=== PATIENT | female | born 1970 | race Caucasian/White ===

== ENCOUNTER 2017-05-18 08:41 | Inpatient (IN) | payer OTHER ==
[~2017-05-18] VITALS: Ht 165.1 cm; Wt 58.5 kg
[2017-05-18 09:37] LABS: BASOPHIL % 0.8 % (0-2); PLATELET COUNT 188 x10^3mcL (130-400); RED CELL DISTRIBUTION WIDTH 13.3 % (11.5-14.5)
[2017-05-18 09:55] LABS: ALKALINE PHOSPHATASE 115 U/L (46-116); ALT/SGPT 31 U/L (14-59); AST/SGOT 30 U/L (15-37); BILIRUBIN TOTAL 0.8 mg/dL (0.20-1.00); CARBON DIOXIDE 26.8 mmol/L (21-32); CHLORIDE SERUM 104 mmol/L (98-107); CREATININE SERUM 0.9 mg/dL (0.6-1.0); GFR1 > 60 mL/min; GLUCOSE SERUM 172 mg/dL (74-106); LIPASE 58 IU/L (73-393); POTASSIUM SERUM 4.4 mmol/L (3.5-5.1); SODIUM SERUM 140 mmol/L (136-145); TOTAL PROTEIN, SERUM 7.7 g/dL (6.4-8.2)
[2017-05-18 09:56] LABS: AMYLASE 176 U/L (25-115)
[2017-05-18 10:04] LABS: CALCIUM 9.3 mg/dL (8.5-10.1)
[2017-05-18 11:44] LABS: AMPHETAMINE QUAL UR NONE DETECTED (NEG <=1000)
[2017-05-18] MEDS ORDERED: CELEXA10 MG PO (12:02)
[2017-05-18] MEDS ORDERED: PEN250 PO (12:03)
[2017-05-18] MEDS ORDERED: MAGNESIUM OXID400 MG PO (12:03)
[2017-05-18] MEDS ORDERED: TRAMADOL HCL50 MG PO (12:04)
[2017-05-18 12:55] VITALS: BP 103/60
[2017-05-18 13:28] LABS: MAGNESIUM 1.7 mg/dL (1.8-2.4)
[2017-05-18 13:29] LABS: CHOLESTEROL/HDL RATIO 2.3
[2017-05-18 13:34] LABS: T3 TOTAL 1.27 ng/mL
[2017-05-18 13:36] LABS: FREE THYROXINE INDEX 2.8 ug/dL (1.4-4.5); T4(THYROXINE) 8.6 ug/dL (4.7-13.3)
[2017-05-18 14:00] LABS: FREE T4 1.17 ng/dL (0.76-1.46)
[2017-05-18 14:24] LABS: microscopic required? YES; urine erythrocyte 3+ (NEGATIVE)
[2017-05-18 17:26] VITALS: BP 99/56
[2017-05-18 20:16] VITALS: BP 106/66
[2017-05-19 05:44] VITALS: BP 105/54
[2017-05-19 06:10] LABS: BASOPHIL % 0.6 % (0-2); PLATELET COUNT 144 x10^3mcL (130-400); RED CELL DISTRIBUTION WIDTH 13.4 % (11.5-14.5)
[2017-05-19 06:28] LABS: CALCIUM 8.2 mg/dL (8.5-10.1); CARBON DIOXIDE 27.5 mmol/L (21-32); CHLORIDE SERUM 110 mmol/L (98-107); CREATININE SERUM 0.8 mg/dL (0.6-1.0); GFR1 > 60 mL/min; GLUCOSE SERUM 79 mg/dL (74-106); MAGNESIUM 1.8 mg/dL (1.8-2.4); PHOSPHOROUS 3.4 mg/dL (2.5-4.9); POTASSIUM SERUM 3.8 mmol/L (3.5-5.1); SODIUM SERUM 143 mmol/L (136-145)
[2017-05-19 09:09] VITALS: BP 110/65
[2017-05-19 13:15] VITALS: BP 113/63
[2017-05-19 17:19] VITALS: BP 80/42; BP 97/58
[2017-05-19 21:01] VITALS: BP 115/73
[2017-05-20 05:37] VITALS: BP 99/60
[2017-05-20 06:30] LABS: BASOPHIL % 0.8 % (0-2); PLATELET COUNT 140 x10^3mcL (130-400)
[2017-05-20 06:37] LABS: CALCIUM 8.1 mg/dL (8.5-10.1); CHLORIDE SERUM 109 mmol/L (98-107); CREATININE SERUM 0.7 mg/dL (0.6-1.0); GFR1 > 60 mL/min; GLUCOSE SERUM 71 mg/dL (74-106); MAGNESIUM 1.6 mg/dL (1.8-2.4); PHOSPHOROUS 3.2 mg/dL (2.5-4.9); POTASSIUM SERUM 3.4 mmol/L (3.5-5.1); SODIUM SERUM 145 mmol/L (136-145)
[2017-05-20] MEDS ORDERED: ZOFRAN ODT4 MG SL (09:04)
[2017-05-20 09:08] VITALS: BP 117/71
[2017-05-20] MEDS ORDERED: GOOD SENSE OMEP20 MG PO (12:16)
[2017-05-20] MEDS ORDERED: ZOF4 PO (12:18)
== END 2017-05-20 13:13 | disposition home or self-care (01) | DRG 392 ==
LOC: ED 08:41 → DU 11:41
PROVIDERS: Emergency Medicine; ADMIT Family Medicine
DX: K52.9 Noninfective gastroenteritis and colitis, unspecified (principal); E86.0 Dehydration; M79.7 Fibromyalgia; Z98.84 Bariatric surgery status; F41.9 Anxiety disorder, unspecified; E83.39 Other disorders of phosphorus metabolism; E83.42 Hypomagnesemia; M17.0 Bilateral primary osteoarthritis of knee; M06.9 Rheumatoid arthritis, unspecified; K21.9 Gastro-esophageal reflux disease without esophagitis; R73.9 Hyperglycemia, unspecified; Z83.3 Family history of diabetes mellitus; Z82.49 Family history of ischemic heart disease and other diseases of the circulatory system; Z88.6 Allergy status to analgesic agent
CPT/HCPCS: 83880; 84439; 87046; 87046-59; J0696; J2405; J2916; J3010; J3475; J3490; J7030; Q0092